=== PATIENT | male | born 1990 | race Two or more races ===

== ENCOUNTER 2021-12-17 15:35 | Emergency (ER) | payer MEDICAID, OTHER ==
[~2021-12-17] VITALS: Ht 188 cm; Wt 172.4 kg
[2021-12-17 16:22] LABS: Basophils # (auto) 0 10 ^3/uL (0-0.2); Basophils % (auto) 0.5 % (0.0-2.0); Eosinophils # (auto) 0.3 10 ^3/uL (0-0.8); Eosinophils % (auto) 3.5 % (0.0-7.0); Hematocrit 48.1 % (41.0-53.0); Hemoglobin 15.3 g/dL (13.5-17.5); Lymphocytes # (auto) 1.9 10 ^3/uL (0.4-5.4); Lymphocytes % (auto) 24.7 % (10.0-50.0); Mean Corpuscular Hemoglobin 25.3 pg (28.0-32.0); Mean Corpuscular Hgb Conc. 31.9 g/dL (32.0-36.0); Mean Corpuscular Volume 79.4 fL (80.0-100.0); Monocytes # (auto) 0.4 10 ^3/uL (0-1.3); Monocytes % (auto) 5.2 % (0.0-12.0); Neutrophils # (auto) 5.1 10 ^3/uL (1.6-8.6); Neutrophils % (auto) 66.1 % (37.0-80.0); Red Blood Cells 6.05 10^6/uL (4.5-5.90); Red Cell Distribution Width 13.8 % (11.8-14.3); White Blood Cell 7.7 10^3/uL (4.4-10.8)
[2021-12-17 16:32] LABS: INR 1.02 (0.9-1.15); Partial Thromboplastin Time 29.6 sec (24.6-33.4)
[2021-12-17 16:34] LABS: Albumin 3.7 g/dL (3.4-5.0); Calcium 9.1 mg/dL (8.5-10.1); Magnesium 2.4 mg/dL (1.6-2.6); Potassium 3.7 mmol/L (3.5-5.1)
[2021-12-17 16:37] LABS: BUN/Creatinine Ratio 13.3; Bilirubin, Total 0.6 mg/dL (0.2-1.0)
[2021-12-17 18:50] VITALS: BP 152/84
== END 2021-12-17 18:57 | disposition home or self-care (01) ==
LOC: ER 15:35
DX: R07.89 Other chest pain (principal)
CPT/HCPCS: 36415; 71045; 80053; 83735; 83880; 84443; 84484; 85025; 85610; 85730; 93005

== ENCOUNTER 2023-01-17 13:03 | Emergency (ER) | payer MEDICAID, OTHER ==
[~2023-01-17] VITALS: Ht 188 cm; Wt 120.0 kg
[2023-01-17 13:31] LABS: Basophils # (auto) 0 10 ^3/uL (0-0.2); Mean Corpuscular Volume 77.4 fL (80.0-100.0); Nucleated Red Blood Cells % 0.1 %; Red Blood Cells 5.66 10^6/uL (4.5-5.90); Red Cell Distribution Width 13.5 % (11.8-14.3)
[2023-01-17 13:34] LABS: Basophils % (auto) 0.5 % (0.0-2.0); Eosinophils # (auto) 0.3 10 ^3/uL (0-0.8); Hematocrit 43.9 % (41.0-53.0); Hemoglobin 14.6 g/dL (13.5-17.5); Lymphocytes % (auto) 29.2 % (10.0-50.0); Mean Corpuscular Hemoglobin 25.8 pg (28.0-32.0); Mean Corpuscular Hgb Conc. 33.3 g/dL (32.0-36.0); Monocytes # (auto) 0.8 10 ^3/uL (0-1.3); Monocytes % (auto) 7.3 % (0.0-12.0); Neutrophils # (auto) 6.2 10 ^3/uL (1.6-8.6); White Blood Cell 10.3 10^3/uL (4.4-10.8)
[2023-01-17 13:57] LABS: Alanine Aminotransferase 182 U/L (7-40); Albumin 4.9 g/dL (3.2-4.8); Alkaline Phosphatase 82 U/L (46-116); Anion Gap 8 (5-15); Aspartate Aminotransferase 125 U/L (13-40); BUN/Creatinine Ratio 15.3 (10.0-20.0); Bilirubin, Total 0.5 mg/dL (0.2-1.0); Blood Urea Nitrogen 15 mg/dL (9-23); Calcium 9.3 mg/dL (8.7-10.4); Carbon Dioxide 26 mmol/L (20-30); Chloride 104 mmol/L (98-107); Glucose 173 mg/dL (74-106); Potassium 4.1 mmol/L (3.5-5.1); Sodium 138 mmol/L (136-145); Total Protein 7.2 g/dL (5.7-8.2)
[2023-01-17 14:37] LABS: Urine Bacteria NONE SEEN /hpf (None Seen); Urine Blood Negative /uL (Negative); Urine Clarity Clear (Clear); Urine Color Yellow (Yellow); Urine Mucus FEW (None Seen); Urine Protein, UAD 2+ (Negative); Urine Specific Gravity 1.024 (1.001-1.035); Urine Urobilinogen Normal (Negative); Urine WBC 1 /hpf (0 - 3)
[2023-01-17 19:08] LABS: Amphetamine Screen, Urine Neg (NEGATIVE); Barbiturate Scree,Urine Neg (NEGATIVE); Benzodiazephine Screen, Urine Neg (NEGATIVE); Cannabinoid Screen, Urine Pos (NEGATIVE); Cocaine Screen, Urine Neg (NEGATIVE); Opiate Scree,Urine Neg (NEGATIVE); Phencyclidine Screen, Urine Neg (NEGATIVE)
[2023-01-17 22:15] VITALS: PULSE 84; RESP 20; O2SAT 96
[2023-01-17] MEDS ORDERED: NITROGLYCERIN 0.4 MG SL TAB SL ONE (22:30)
[2023-01-17] MEDS ORDERED: LABETALOL HCL 5 MG/ML 4ML SYRINGE IV ONE (23:00)
[2023-01-18] VITALS: BP 150/96; PULSE 81; RESP 20; O2SAT 97
[2023-01-18] MEDS ORDERED: LABETALOL HCL 5 MG/ML 4ML SYRINGE IV ONE (00:15)
== END 2023-01-18 00:41 | disposition home or self-care (01) ==
LOC: ER 13:03
DX: R07.89 Other chest pain (principal); F12.10 Cannabis abuse, uncomplicated; I10 Essential (primary) hypertension; R74.01 Elevation of levels of liver transaminase levels; E11.9 Type 2 diabetes mellitus without complications
CPT/HCPCS: 36415; 71045; 80053; 80307; 81001; 83880; 84484; 85025; 85379; 93005; 96374; 96376; 99285; J3490